=== PATIENT | male | born 1975 | race Hispanic/Latino ===

== ENCOUNTER 2023-03-06 11:10 | Inpatient (IN) | payer SELFPAY ==
[2023-03-06 12:19] VITALS: BMI 31.9
[2023-03-06] MEDS ORDERED: Ondansetron ODT 4 MG TAB PO PRN (12:31)
[2023-03-06] MEDS ORDERED: Ondansetron PF 4 MG/2 ML Vial IVP PRN (12:31)
[2023-03-06] MEDS ORDERED: Calcium Carbonate 500 MG ChewTAB PO PRN (12:31)
[2023-03-06] MEDS: Sodium Chloride 0.9% 1,000 ML IV SCH ×2 (13:00→22:00)
[2023-03-06 13:07] LABS: #Eosinphils 0.1 thou/uL (0.0-0.7); #Monocytes 0.9 thou/uL (0.11-0.59); #Neutrophils 9.7 thou/uL (1.40-6.50); %Basophils 0.3 % (0.0-1.0); %Eosinophils 0.4 % (0.0-10.0); %Lymphocytes 9.5 % (21.0-51.0); %Monocytes 7.8 % (0.0-10.0); %Neutrophils 81.6 % (42.0-75.0); Hematocrit 36.2 % (42.0-52.0); Hemoglobin 12.2 g/dL (14.0-18.0); Mean Corpuscular HGB CONC 33.7 g/dL (32.0-36.0); Mean Corpuscular Volume 97.8 fl (78.0-98.0); Platelet Count 322 10x3/uL (130-400); White Blood Cell (WBC) Count 11.8 10x3/uL (4.8-10.8)
[2023-03-06 13:26] LABS: INR-International Normal Ratio 1.1
[2023-03-06 13:42] LABS: CRP (Inflammatory) 6.8 mg/dL (= or < 0.5)
[2023-03-06] MEDS ORDERED: Dextrose 50% Abboject 50 ML SYRINGE SLOW IVP PRN (13:45)
[2023-03-06] MEDS ORDERED: Insulin Regular 300 UNITS/3 ML VIAL SC PRN ×2 (13:45)
[2023-03-06] MEDS ORDERED: Dextrose 5% in Water 1,000 ML IV PRN (13:45)
[2023-03-06] MEDS ORDERED: Glucagon 1 MG/ML KIT IM PRN (13:45)
[2023-03-06 13:52] LABS: ALT (SGPT) 71 U/L (8-55); AST (SGOT) 76 U/L (5-34); Albumin 2.7 g/dL (3.5-5.0); Alkaline Phosphatase 366 U/L (40-110); Anion Gap 14 mmol/L (10-20); BUN (Urea Nitrogen) 11 mg/dL (8.9-20.6); Bilirubin, Direct 8.5 mg/dL (0.1-0.3); Calc. Creatinine Clearance 156 mL/min (70-130); Calcium 8.5 mg/dL (7.8-10.44); Carbon Dioxide 27 mmol/L (22-29); Chloride 97 mmol/L (98-107); Estimated GFR 110; Glucose 202 mg/dL (70-105); Iron 36 ug/dL (65-175); Magnesium 1.8 mg/dL (1.6-2.6); Potassium 3.8 mmol/L (3.5-5.1); Protein, Total 7.2 g/dL (6.0-8.3); Sodium 134 mmol/L (136-145)
[2023-03-06] MEDS ORDERED: Piperacillin/Tazobactam 3.375 GM in Sodium Chloride 0.9% 100 ML IVPB SCH (14:00)
[2023-03-06] MEDS ORDERED: Magnesium 2 GM/50 ML(in water) 2 GM in Premix 1 BAG IVPB SCH (14:30)
[2023-03-06] MEDS: Piperacillin/Tazobactam 3.375 GM in Sodium Chloride 0.9% 100 ML IVPB SCH (20:53)
[2023-03-06] MEDS: Famotidine 20 MG TAB PO SCH (20:53)
[2023-03-07] MEDS: Piperacillin/Tazobactam 3.375 GM in Sodium Chloride 0.9% 100 ML IVPB SCH ×3 (05:05→22:34)
[2023-03-07 05:24] LABS: #Eosinphils 0.2 thou/uL (0.0-0.7); #Neutrophils 6.5 thou/uL (1.40-6.50); %Basophils 0.3 % (0.0-1.0); %Eosinophils 2.3 % (0.0-10.0); %Lymphocytes 20.3 % (21.0-51.0); %Monocytes 10.2 % (0.0-10.0); %Neutrophils 66.4 % (42.0-75.0); Hematocrit 36.4 % (42.0-52.0); Hemoglobin 12.2 g/dL (14.0-18.0); Mean Corpuscular HGB CONC 33.5 g/dL (32.0-36.0); Mean Corpuscular Hemoglobin 32.4 pg (27.0-31.0); Mean Corpuscular Volume 96.6 fl (78.0-98.0); Mean Platelet Volume 11.2 fL (7.4-10.4); Platelet Count 318 10x3/uL (130-400); RBC Distribution Width 13.1 % (11.5-14.5); Red Blood Cell (RBC) Count 3.77 mill/uL (4.70-6.10); White Blood Cell (WBC) Count 9.8 10x3/uL (4.8-10.8)
[2023-03-07 05:47] LABS: ALT (SGPT) 67 U/L (8-55); AST (SGOT) 73 U/L (5-34); Albumin 2.6 g/dL (3.5-5.0); Alkaline Phosphatase 348 U/L (40-110); Anion Gap 14 mmol/L (10-20); BUN (Urea Nitrogen) 9 mg/dL (8.9-20.6); Bilirubin, Total 10.1 mg/dL (0.2-1.2); Calc. Creatinine Clearance 166 mL/min (70-130); Calcium 8.4 mg/dL (7.8-10.44); Carbon Dioxide 25 mmol/L (22-29); Chloride 102 mmol/L (98-107); Estimated GFR 112; Globulin 4.4 g/dL (2.4-3.5); Glucose 93 mg/dL (70-105); Phosphorus 3.4 mg/dL (2.3-4.7); Potassium 3.6 mmol/L (3.5-5.1); Sodium 137 mmol/L (136-145)
[2023-03-07] MEDS: Famotidine 20 MG TAB PO SCH ×2 (09:21→22:38)
[2023-03-07] MEDS: Sodium Chloride 0.9% 1,000 ML IV SCH ×2 (09:22→22:43)
[2023-03-07 11:51] LABS: ANA Symphony (Qualitative) Negative (Negative); ANA Symphony (Quantitative) 0.3 Ratio (< 0.7 Negative); dsDNA IgG Antibody 1.7 IU/mL (<10 Negative)
[2023-03-07 13:09] LABS: EliA Vaculitis New Method **** NEW METHOD ****; Mitochondrial Ab 0.8 U/mL (<4 Negative)
[2023-03-08] MEDS: Sodium Chloride 0.9% 1,000 ML IV SCH (00:52)
[2023-03-08 01:47] VITALS: BP 118/69; TEMP 98.7
== END 2023-03-08 01:28 | disposition short-term general hospital (02) | DRG 446 ==
LOC: PREOBSVTOIN 11:48 → MSONC 11:49
PROVIDERS: ADMIT Internal Medicine; ATTEND Family Medicine
DX: K80.21 Calculus of gallbladder without cholecystitis with obstruction (principal); E11.9 Type 2 diabetes mellitus without complications; Z79.899 Other long term (current) drug therapy; D53.9 Nutritional anemia, unspecified; Z79.84 Long term (current) use of oral hypoglycemic drugs
CPT/HCPCS: 36415; 36416; 74181; 80048; 80053; 80076; 82390; 82728; 83516; 83540; 83550; 83735; 84100; 84443; 85025; 85610; 86038; 86140; 86225; J2543; J3475; J3490; J7050

== ENCOUNTER 2023-04-12 12:52 | Emergency (ER) | payer OTHER, SELFPAY ==
[2023-04-12] MEDS ORDERED: Ketorolac Tromethamine 30 MG (1 mL) VIAL ONE ×2 (13:35→13:49)
[2023-04-12] MEDS ORDERED: Dexamethasone 10 MG/ML VIAL ONE (13:35)
[2023-04-12] MEDS ORDERED: Diazepam 5 MG TAB ONE (13:37)
[2023-04-12 14:42] LABS: #Basophils 0.1 thou/uL (0.0-0.2); #Eosinphils 0.3 thou/uL (0.0-0.7); #Monocytes 0.6 thou/uL (0.11-0.59); #Neutrophils 7.6 thou/uL (1.40-6.50); %Basophils 0.5 % (0.0-1.0); %Eosinophils 2.6 % (0.0-10.0); %Monocytes 5.5 % (0.0-10.0); %Neutrophils 67.1 % (42.0-75.0); Hematocrit 41.3 % (42.0-52.0); Hemoglobin 14.8 g/dL (14.0-18.0); Mean Corpuscular HGB CONC 35.8 g/dL (32.0-36.0); Mean Corpuscular Hemoglobin 32.7 pg (27.0-31.0); Mean Corpuscular Volume 91.4 fl (78.0-98.0); Platelet Count 252 10x3/uL (130-400); RBC Distribution Width 13.4 % (11.5-14.5); Red Blood Cell (RBC) Count 4.52 mill/uL (4.70-6.10); White Blood Cell (WBC) Count 11.4 10x3/uL (4.8-10.8)
[2023-04-12 15:11] LABS: ALT (SGPT) 15 U/L (8-55); AST (SGOT) 16 U/L (5-34); Albumin 3.6 g/dL (3.5-5.0); Alkaline Phosphatase 109 U/L (40-110); Anion Gap 16 mmol/L (10-20); BUN (Urea Nitrogen) 14 mg/dL (8.9-20.6); Bilirubin, Total 1.4 mg/dL (0.2-1.2); Calc. Creatinine Clearance 0 mL/min (70-130); Calcium 8.6 mg/dL (7.8-10.44); Carbon Dioxide 20 mmol/L (22-29); Chloride 103 mmol/L (98-107); Estimated GFR 109; Globulin 4.1 g/dL (2.4-3.5); Glucose 303 mg/dL (70-105); Lipase 425 U/L (8-78); Potassium 3.9 mmol/L (3.5-5.1); Protein, Total 7.7 g/dL (6.0-8.3); Sodium 135 mmol/L (136-145)
[2023-04-12 15:25] LABS: Bacteria/HPF None Seen HPF (None Seen); Bilirubin Negative (Negative); Blood, Urine Negative (Negative); CAUTI Indications for Culture Pelvic or flank pain; Clarity Clear (Clear); Glucose, Urine (Dipstick) Greater than 1000 mg/dL (Negative); Ketone, Urine Negative (Negative); Leukocyte Negative Leu/uL (Negative); Nitrite Negative (Negative); Protein, Urine (Dipstick) 10 mg/dL (Neg-Trace); RBC/HPF 0-3 HPF (0-3); Specific Gravity, Urine 1.024 (1.002-1.036); Squamous Epithelial 0-3 HPF (0-3); Urobilinogen Normal mg/dL (Less than 2); WBC/HPF 0-3 HPF (0-3); pH, Urine 5.5 (5.0-9.0)
[2023-04-12 15:27] LABS: Urine Culture Reflex No No
== END 2023-04-12 17:32 | disposition home or self-care (01) ==
LOC: ERS 12:52
DX: M54.42 Lumbago with sciatica, left side (principal); R79.89 Other specified abnormal findings of blood chemistry; E11.9 Type 2 diabetes mellitus without complications; Z79.84 Long term (current) use of oral hypoglycemic drugs; Z79.4 Long term (current) use of insulin
CPT/HCPCS: 36415; 80053; 81001; 83690; 85025; 86140; 93005; 96372; J1100; J1885

== ENCOUNTER 2024-04-28 07:26 | Outpatient (CLI) | payer OTHER | END 2024-04-28 07:27 | disposition home or self-care (01) | LOC: CT 07:26 | PROVIDERS: ATTEND Internal Medicine Hematology & Oncology | DX: C24.1 Malignant neoplasm of ampulla of Vater (principal); R91.8 Other nonspecific abnormal finding of lung field; K76.9 Liver disease, unspecified; K59.00 Constipation, unspecified; Z98.890 Other specified postprocedural states | CPT/HCPCS: 71270; 74178 ==

== ENCOUNTER 2024-11-30 08:03 | Outpatient (CLI) | payer OTHER ==
[2024-11-30] MEDS ORDERED: Iopamidol 370 76% 100 ML VIAL ONE (11:32)
== END 2024-11-30 08:04 | disposition home or self-care (01) ==
LOC: CT 08:03
PROVIDERS: ATTEND Internal Medicine Hematology & Oncology
DX: C24.1 Malignant neoplasm of ampulla of Vater (principal); C78.7 Secondary malignant neoplasm of liver and intrahepatic bile duct; C25.7 Malignant neoplasm of other parts of pancreas; R59.0 Localized enlarged lymph nodes; K76.9 Liver disease, unspecified
CPT/HCPCS: 71260; 74177; J1642; Q9967

== ENCOUNTER 2025-01-25 09:22 | Outpatient (CLI) | payer OTHER ==
[2025-01-25] MEDS ORDERED: Iopamidol 370 76% 100 ML VIAL ONE (11:09)
== END 2025-01-25 09:23 | disposition home or self-care (01) ==
LOC: CT 09:22
PROVIDERS: ATTEND Internal Medicine Hematology & Oncology
DX: C25.7 Malignant neoplasm of other parts of pancreas (principal); C24.1 Malignant neoplasm of ampulla of Vater; C78.7 Secondary malignant neoplasm of liver and intrahepatic bile duct; R91.8 Other nonspecific abnormal finding of lung field; K76.9 Liver disease, unspecified; R59.0 Localized enlarged lymph nodes; M89.9 Disorder of bone, unspecified
CPT/HCPCS: 71260; 74177; J1642; Q9967